=== PATIENT | female | born 1975 | race Caucasian/White ===

== ENCOUNTER 2017-06-08 23:25 | Emergency (ER) | payer OTHER ==
[2017-06-08 23:25] VITALS: TEMP 37.2
[2017-06-08] MEDS ORDERED: HALOPERIDOL LACTATE 5 MG/ML 1 ML VIAL ONE (23:26)
[2017-06-08] MEDS ORDERED: LORAZEPAM 2 MG/ML 1 ML VIAL ONE (23:26)
[2017-06-08] MEDS ORDERED: SODIUM CHLORIDE 0.9% 1000ML 1,000 ML IV STA (23:28)
[2017-06-08] MEDS ORDERED: HALOPERIDOL LACTATE 5 MG/ML 1 ML VIAL IM STA (23:28)
[2017-06-08] MEDS ORDERED: LORAZEPAM 2 MG/ML 1 ML VIAL IM STA ×2 (23:28→23:47)
--- NOTE | 2017-06-08 23:31 | EMERGENCY ROOM VISIT NOTE ---
History Report prepared by Glenna: Roby Mccollum Under the Supervision of: Dr. Markie Miller M.D. 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 This HPI is limited secondary to intoxication. She was at the concert at [facility] drinking alcohol. EMS was informed that the patient had fallen so they intervened. Per EMS, the patient was very agreeable and aware and answered their questions appropriately at that time. Source of History: EMS History Limited By: intoxication Onset: FUNDS TRANSFER CLERK Position: other (global) Symptom Intensity: moderate Quality: other (ETOH Intoxication) Timing: constant Review of Systems See HPI for pertinent positives & negatives. A total of 10 systems reviewed and were otherwise negative. Past Medical & Surgical Unable to obtain secondary to intoxication. Family History Unable to obtain secondary to intoxication. Social History Social History: Unable to obtain secondary to intoxication. Current/Historical Medications Unable to Obtain Active Prescriptions or Reported Meds Physical Exam Vital Signs Date Time Temp Pulse Resp B/P (MAP) Pulse Ox O2 Delivery O2 Flow Rate FiO2 06/09/17 07:13 111 16 102/73 98 06/09/17 06:19 95 16 115/81 100 Room Air 06/09/17 05:00 79 20 97/61 99 Room Air 06/09/17 04:24 79 06/09/17 04:23 82 14 95/70 98 Room Air 06/09/17 03:29 87 14 103/66 98 Room Air 06/09/17 02:17 88 14 90/73 96 Room Air 06/09/17 01:24 89 16 99/72 95 Room Air 06/09/17 01:07 87 14 95 06/09/17 00:38 89 14 97/61 96 Room Air 06/09/17 00:00 101 18 100/69 96 Room Air 06/08/17 23:46 143 06/08/17 23:45 126 22 137/86 96 Room Air 06/08/17 23:25 37.2 131 22 129/88 98 Room Air Physical Exam GENERAL: Patient is heavily intoxicated. Smells of alcohol. Well appearing and in no acute distress. Slurred speech. Aggressive. Combative and actively assaulting staff. HEAD: No evidence of Trauma. AT/NC EYES: Injected conjunctiva. Normal EOM. Pupils equal/reactive. ENT: Mucous membranes moist, no nasal congestion, . NECK: No step-offs, no adenopathy, no meningismus, trachea is midline. LUNGS: No dyspnea. Clear to auscultation and equal bilaterally. No wheeze, no rhonchi. HEART: Tachycardic rate and regular rhythm. No murmurs, rubs, gallops appreciated. ABDOMEN: Soft, nontender, bowel sounds positive, no masses appreciated, no peritonitis. BACK: No midline tenderness, no CVA tenderness EXTREMITIES: Normal motion all extremities, no cyanosis, no edema. NEUROLOGIC: Intoxicated. Alert, oriented. No acute motor or sensory deficits, no focal weakness, cranial nerves grossly intact. SKIN: No rash, no jaundice, no diaphoresis. Medical Decision & Procedures ER Provider Diagnostic Interpretation: Radiology results and stated below per my review and radiologist interpretation: CT SCAN OF THE BRAIN WITHOUT IV CONTRAST CLINICAL HISTORY: Intoxication. Change in mental status. Suspected head injury. COMPARISON STUDY: No priors. TECHNIQUE: Unenhanced axial CT scan of the brain is performed from the vertex to the skull base. Automated dose control exposure was utilized. CT DOSE: Reported separately under the concurrently performed CT scan of the cervical spine. FINDINGS: Brain parenchyma: The brain parenchyma is normal in appearance. There is no hemorrhage, mass effect, or evidence of acute territorial ischemia by CT criteria. Fleming-white matter is preserved. No extra-axial fluid collection is seen. Ventricles, sulci, cisterns: Normal in configuration. Intracranial vasculature: The visualized intracranial vasculature at the skull base is normal in appearance. Calvarium: There is no depressed calvarial fracture. Sinuses and mastoids: The visualized paranasal sinuses are clear. The mastoid air cells are well pneumatized. Orbits: The bony orbits are grossly intact. IMPRESSION: No acute intracranial abnormality. Electronically signed by: Wu Meléndez M.D. 06/09/2017 1:43 AM Dictated Date/Time: 06/09/2017 1:41 AM SINGLE VIEW CHEST CLINICAL HISTORY: Intoxication. FINDINGS: An AP, portable, prone chest radiograph is obtained. No prior studies are available for comparison at the time of dictation. The examination is significantly degraded by portable technique and patient rotation. The cardiomediastinal silhouette is unremarkable. The lungs and pleural spaces are clear. No pneumothorax is seen. The bony thorax is grossly intact. IMPRESSION: No acute cardiopulmonary abnormality. Electronically signed by: Wu Meléndez M.D. 06/09/2017 1:06 AM Dictated Date/Time: 06/09/2017 1:[address] SCAN OF THE CERVICAL SPINE CLINICAL HISTORY: Intoxication. Change in mental status. Questionable head injury. COMPARISON STUDY: No priors. TECHNIQUE: CT scan of the cervical spine is performed from the skull base to the upper thoracic spine. Images are reviewed in the axial, sagittal, and coronal planes. IV contrast was not administered for this examination. CT DOSE: 1625.44 mGy.cm FINDINGS: Skeletal structures: The skeletal structures are well mineralized. There is no evidence of fracture or subluxation involving the cervical spine. Vertebral body height and alignment are maintained. There is straightening of cervical lordosis. The odontoid process and lateral masses are intact. The atlantoaxial articulation is preserved. The spinous processes appear intact. Tiny anterior osteophytes are seen in the lower cervical region. Intervertebral discs: Mild disc space narrowing is noted at C5-C6 and C6-C7. Central canal: Tiny posterior disc osteophyte complexes at C3-C4, C4-C5, and C5-C6 may contribute to minimal acquired compromise of the central canal. Soft tissues: The prevertebral and paraspinous soft tissues are within normal limits. Calvarium: The visualized calvarium at the skull base appears intact. Brain parenchyma: Partially visualized brain parenchyma the skull base is within normal limits. Sinuses and mastoids: The visualized paranasal sinuses are clear. The mastoid air cells are well pneumatized. Lung apices: Clear as visualized. IMPRESSION: There is no evidence of fracture or subluxation involving the cervical spine. Electronically signed by: Wu Meléndez M.D. 06/09/2017 1:45 AM Dictated Date/Time: 06/09/2017 1:40 AM Laboratory Results 06/08/17 23:53 Red Blood Count 4.42, Mean Corpuscular Volume 90.0, Mean Corpuscular Hemoglobin 30.3, Mean Corpuscular Hemoglobin Concent 33.7, Mean Platelet Volume 10.4, Neutrophils (%) (Auto) 43.5, Lymphocytes (%) (Auto) 44.9, Monocytes (%) (Auto) 6.2, Eosinophils (%) (Auto) 4.5, Basophils (%) (Auto) 0.9, Neutrophils # (Auto) 2.83, Lymphocytes # (Auto) 2.92, Monocytes # (Auto) 0.40, Eosinophils # (Auto) 0.29, Basophils # (Auto) 0.06 06/08/17 23:53 Test 06/08/17 23:53 White Blood Count 6.50 K/uL (4.8-10.8) Red Blood Count 4.42 M/uL (4.2-5.4) Hemoglobin 13.4 g/dL (12.0-16.0) Hematocrit 39.8 % (37-47) Mean Corpuscular Volume 90.0 fL (80-100) Mean Corpuscular Hemoglobin 30.3 pg (25-34) Mean Corpuscular Hemoglobin Concent 33.7 g/dl (32-36) Platelet Count 291 K/uL (130-400) Mean Platelet Volume 10.4 fL (7.4-10.4) Neutrophils (%) (Auto) 43.5 % Lymphocytes (%) (Auto) 44.9 % Monocytes (%) (Auto) 6.2 % Eosinophils (%) (Auto) 4.5 % Basophils (%) (Auto) 0.9 % Neutrophils # (Auto) 2.83 K/uL (1.4-6.5) Lymphocytes # (Auto) 2.92 K/uL (1.2-3.4) Monocytes # (Auto) 0.40 K/uL (0.11-0.59) Eosinophils # (Auto) 0.29 K/uL (0-0.5) Basophils # (Auto) 0.06 K/uL (0-0.2) RDW Standard Deviation 44.4 fL (36.4-46.3) RDW Coefficient of Variation 13.4 % (11.5-14.5) Immature Granulocyte % (Auto) 0.0 % Immature Granulocyte # (Auto) 0.00 K/uL (0.00-0.02) Anion Gap 11.0 mmol/L (3-11) Estimated GFR () 101.5 Estimated GFR (Non- 87.6 BUN/Creatinine Ratio 11.6 (10-20) Calcium Level 8.9 mg/dl (8.5-10.1) Troponin I < 0.015 ng/ml (0-0.045) Human Chorionic Gonadotropin, Qual NEG (NEG) Chemistry Specimen Hemolysis Ethyl Alcohol mg/dL 297.0 mg/dl (0-3) Laboratory results as reviewed by me. Medications Administered Medications (Trade) Dose Ordered Sig/Martha Route Start Time Stop Time Status Last Admin Dose Admin Lorazepam (Ativan Inj) 2 mg NOW STAT IM 06/08/17 23:28 06/08/17 23:32 DC 06/09/17 00:36 2 MG Haloperidol Lactate (Haldol Inj) 10 mg NOW STAT IM 06/08/17 23:28 06/08/17 23:32 DC 06/09/17 00:35 10 MG Lorazepam (Ativan Inj) 2 mg NOW STAT IM 06/08/17 23:47 06/08/17 23:48 DC 06/08/17 23:53 2 MG ECG Indication: toxicologic Rate (beats per minute): 98 Rhythm: normal sinus Findings: no acute ischemic change, no ectopy, other (QTC of 457) ED Course 2323: The patient was evaluated in room B3. A complete history and physical exam was performed. 2328: Ordered Haldol Inj 10 mg IM, Ativan Inj 2 mg IM, Sodium Chloride 1000 ml @ 999 mls/hr IV 2345: The patient is belligerent again. She will be given further Ativan. 2347: Ordered Ativan Inj 2 mg IM 0023: She is now sleeping and no longer aggressive. 0100: Her heart rate is in the 80s, and her oxygen saturation is 98% on room air. 0201: The patient remains asleep and in no distress. 0430: She is still sleeping soundly in no distress. Her vitals are stable. 0630: The patient is still asleep, periodically rolling around. 0706: The patient is now awake. She is still intoxicated. She will be calling a sober friend for a ride. Medical Decision Differential: Alcohol Intoxication, Drug Intoxication, Electrolyte Abnormality, Trauma, Intracranial Event, Toxicological, Excited Delirium, Serotonin Syndrome , amongst other pathologies entertained. 42 yr old intoxicated female brought in by EMS after stumbling and falling striking head. Arrives agressively attacking staff. On walking in to room patient actively kicking at staff at which time I immediately gave order for chemical and physical restraint of patient who is severely belligerent and not at all listening to verbal instructions. I was unable to verbally deescalate nor re-direct the patient. The patient's combative behavior was risking a catastrophe. To protect the staff and the patient from harm it was necessary to chemically and physically restrain the patient. Following eventually falling asleep medical work-up able to be done. With head injury report CT head /neck done which were fortunately negative. Labs, CXR unremarkable other than elevated EtoH. Close monitoring throughout the night, protecting airway and breathing comfortably throughout ED stay. EtOH positive. Monitored and discharged when awake, alert, oriented and denies any complaints to care of her boyfriend. I made her aware of what happened as well as her boyfriend aware. Impression Primary Impression: Alcohol abuse Additional Impressions: Alcohol use with intoxication Combative behavior Critical Care I have personally spent greater than 35 minutes of critical care time in the direct management of this patient. This was a life/limb threatening event. This includes time spent evaluating patient, direct bedside care, chart review, placing orders, interpretation of diagnostic studies, discussion with consultants, patient, and family members, as well as other required patient management activities. This 35 minutes is in excess of all separately billable procedures. Scribe Attestation The scribe's documentation has been prepared under my direction and personally reviewed by me in its entirety. I confirm that the note above accurately reflects all work, treatment, procedures, and medical decision making performed by me. Departure Information Dispostion Home / Self-Care Prescriptions Unable to Obtain Active Prescriptions or Reported Meds Forms HOME CARE DOCUMENTATION FORM, IMPORTANT VISIT INFORMATION Patient Instructions My [facility] Additional Instructions You were severely combative with staff and had to be physically and chemically restrained to protect you and the staff of the Emergency Department. The medications given to you can sometimes cause side effects of muscle stiffness and twitching the next day. If you have concerns please return to Emergency Department for further evaluation. You were evaluated in emergency department for intoxication. This is a sign of Alcohol Abuse and should not be taken lightly. You had a blood alcohol level that was significantly elevated. Over the next 24 hours keep well hydrated and eat light meals. Don't drink any more alcohol. This is important. Please discuss this visit with your Primary Care Provider and/or your loved ones. Unless an exceptional circumstance, the Hospital DOES NOT contact anyone during your visit, nor is your Protected Medical Information released to anyone without your approval/request. This means we do not contact your the Police. However, you will likely receive a bill from the Hospital and/or your Insurance company. If the Police were involved you will likely be cited for public intoxication. Please contact either [facility] Police or the [place] Police for further information. Call 911 or return to Emergency Department if you develop: Passing out, difficulty breathing, many episodes of vomiting, blood in vomit or stool, abdominal pain, fevers, or other severe symptoms. We are always here to help if you feel you need further evaluation or treatment. Problem Qualifiers
[2017-06-09 00:02] LABS: BASO % 0.9 %; BASO ABS # 0.06 K/uL (0-0.2); COMPLETE YES; EOS % 4.5 %; HEMATOCRIT 39.8 % (37-47); LYMPH % 44.9 %; LYMPH ABS # 2.92 K/uL (1.2-3.4); MEAN CORPUSCULAR HEMOGLOBIN 30.3 pg (25-34); MEAN CORPUSCULAR HGB CONC 33.7 g/dl (32-36); MEAN PLATELET VOLUME 10.4 fL (7.4-10.4); MONO % 6.2 %; NEUT % 43.5 %; PLATELET COUNT 291 K/uL (130-400); RED BLOOD COUNT 4.42 M/uL (4.2-5.4)
[2017-06-09 00:25] LABS: PREG INTERNAL NEGATIVE QC NEG CLEAR BACKGROUND; PREG INTERNAL POSITIVE QC POS CONTROL LINE
[2017-06-09 00:30] LABS: BLOOD UREA NITROGEN 10 mg/dl (7-18); BUN/CREATININE RATIO 11.6 (10-20); CALCIUM 8.9 mg/dl (8.5-10.1); CARBON DIOXIDE 22 mmol/L (21-32); CHLORIDE 115 mmol/L (98-107); CREATININE 0.83 mg/dl (0.60-1.20); GLUCOSE 99 mg/dl (70-99); POTASSIUM 3.6 mmol/L (3.5-5.1); SODIUM 148 mmol/L (136-145)
--- NOTE | 2017-06-09 01:07 | DIAGNOSTIC IMAGING REPORT ---
SINGLE VIEW CHEST CLINICAL HISTORY: Intoxication. FINDINGS: An AP, portable, prone chest radiograph is obtained. No prior studies are available for comparison at the time of dictation. The examination is significantly degraded by portable technique and patient rotation. The cardiomediastinal silhouette is unremarkable. The lungs and pleural spaces are clear. No pneumothorax is seen. The bony thorax is grossly intact. IMPRESSION: No acute cardiopulmonary abnormality. Electronically signed by: Wu Meléndez M.D. 06/09/2017 1:06 AM Dictated Date/Time: 06/09/2017 1:05 AM
--- NOTE | 2017-06-09 01:44 | DIAGNOSTIC IMAGING REPORT ---
CT SCAN OF THE BRAIN WITHOUT IV CONTRAST CLINICAL HISTORY: Intoxication. Change in mental status. Suspected head injury. COMPARISON STUDY: No priors. TECHNIQUE: Unenhanced axial CT scan of the brain is performed from the vertex to the skull base. Automated dose control exposure was utilized. CT DOSE: Reported separately under the concurrently performed CT scan of the cervical spine. FINDINGS: Brain parenchyma: The brain parenchyma is normal in appearance. There is no hemorrhage, mass effect, or evidence of acute territorial ischemia by CT criteria. Fleming-white matter is preserved. No extra-axial fluid collection is seen. Ventricles, sulci, cisterns: Normal in configuration. Intracranial vasculature: The visualized intracranial vasculature at the skull base is normal in appearance. Calvarium: There is no depressed calvarial fracture. Sinuses and mastoids: The visualized paranasal sinuses are clear. The mastoid air cells are well pneumatized. Orbits: The bony orbits are grossly intact. IMPRESSION: No acute intracranial abnormality. Electronically signed by: Wu Meléndez M.D. 06/09/2017 1:43 AM Dictated Date/Time: 06/09/2017 1:41 AM
--- NOTE | 2017-06-09 01:47 | DIAGNOSTIC IMAGING REPORT ---
CT SCAN OF THE CERVICAL SPINE CLINICAL HISTORY: Intoxication. Change in mental status. Questionable head injury. COMPARISON STUDY: No priors. TECHNIQUE: CT scan of the cervical spine is performed from the skull base to the upper thoracic spine. Images are reviewed in the axial, sagittal, and coronal planes. IV contrast was not administered for this examination. CT DOSE: 1625.44 mGy.cm FINDINGS: Skeletal structures: The skeletal structures are well mineralized. There is no evidence of fracture or subluxation involving the cervical spine. Vertebral body height and alignment are maintained. There is straightening of cervical lordosis. The odontoid process and lateral masses are intact. The atlantoaxial articulation is preserved. The spinous processes appear intact. Tiny anterior osteophytes are seen in the lower cervical region. Intervertebral discs: Mild disc space narrowing is noted at C5-C6 and C6-C7. Central canal: Tiny posterior disc osteophyte complexes at C3-C4, C4-C5, and C5-C6 may contribute to minimal acquired compromise of the central canal. Soft tissues: The prevertebral and paraspinous soft tissues are within normal limits. Calvarium: The visualized calvarium at the skull base appears intact. Brain parenchyma: Partially visualized brain parenchyma the skull base is within normal limits. Sinuses and mastoids: The visualized paranasal sinuses are clear. The mastoid air cells are well pneumatized. Lung apices: Clear as visualized. IMPRESSION: There is no evidence of fracture or subluxation involving the cervical spine. Electronically signed by: Wu Meléndez M.D. 06/09/2017 1:45 AM Dictated Date/Time: 06/09/2017 1:40 AM
[2017-06-09 07:13] VITALS: BP 102/73; PULSE 111; O2SAT 98
== END 2017-06-09 07:23 | disposition home or self-care (01) ==
LOC: C.EDB 23:28
DX: F10.129 Alcohol abuse with intoxication, unspecified (principal); F91.9 Conduct disorder, unspecified; W01.10XA Fall on same level from slipping, tripping and stumbling with subsequent striking against unspecified object, initial encounter; Y92.39 Other specified sports and athletic area as the place of occurrence of the external cause; Y93.89 Activity, other specified